=== PATIENT | female | born 1965 | race African-American/Black ===

== ENCOUNTER 2017-07-25 17:28 | Observation (INO) ==
--- NOTE | 2017-07-25 17:53 | Emergency Department Note ---
Disposition Clinical Impression: Chest pain Qualifiers: Chest pain type: unspecified Qualified Code(s): R07.9 - Chest pain, unspecified Disposition: Admitted As Inpatient Condition: Undetermined Referrals: Ramirez Arevalo DO [Primary Care Provider] - Forms: ED Satisfaction Letter Time of Disposition: 18:56 Chest Pain HPI - General Chief Complaint: ED Chest Pain Stated Complaint: Chest Pain Time Seen by Provider: 07/25/17 17:30 Source: patient, family, EMS Mode of arrival: EMS Limitations: no limitations Vital Signs Reviewed: Yes Nursing Notes Reviewed: Yes - History of Present Illness HPI Narrative: 51-year-old female arrives to [facility] emergency department complaining of left-sided chest pain that is radiating to her back and left side of her neck. The patient states this started roughly 5 hours ago. The patient states she has associated dyspnea with this. The patient denies any other complaints at this time. The patient has had multiple workups years ago for cardiac chest pain that felt similar to this but the patient states is much worse at this time. The patient denies any other complaints and appears uncomfortable room with left-sided chest wall pain. The patient is currently experiencing an episode of laryngitis. She denies any fevers, chills , nausea, vomiting, unilateral weakness, any other complaints at this time. Patient recently had a nuclear stress test which revealed a mild abnormality in inferior wall. Pt complaint: chest pain Onset (ago): hour(s) (5-6) Duration: constant Onset: during rest, during exertion Pain Location: left chest Severity: moderate Severity scale (1-10): 7 Quality: tightness Pain Radiation: LUE, back, neck Improves with: nothing Worsens with: nothing Associated symptoms: Reports: dyspnea. Denies: nausea, vomiting, diaphoresis Treatments prior to arrival chest pain: none - Related Data On Oral Contraceptives: No Home Medications Medication Instructions Recorded Confirmed Bupropion HCl [Wellbutrin Xl] 300 mg PO DAILY 09/02/15 07/23/17 Gabapentin [Neurontin] 400 mg PO TID 09/02/15 07/23/17 Pantoprazole Sodium 40 mg PO DAILY 09/02/15 07/23/17 Docusate [Colace] 100 mg PO DAILY 03/27/17 07/23/17 Meclizine [Antivert] 12.5 mg PO PRN PRN 03/27/17 07/23/17 Multivitamin [Multi-Day Vitamins] 1 each PO DAILY 03/27/17 07/23/17 Previous Rx's Medication Instructions Recorded Calcium Carbonate/Vitamin D3 2 each PO DAILY #60 tablet 01/31/16 [Calcium 600 + Vit D3 Tablet] Supplies [SUPPLIES] 1 each .ROUTE AD #2 each 01/29/17 Raloxifene [Evista] 1 tab PO DAILY #90 tablet 02/26/17 Ca/D3/Mag#11/Zinc/Cloth Winder Machine Operator/Reyes/Bor 2 tab PO DAILY #60 tablet 05/18/17 [Caltrate 600+D Plus Tablet] Allergies Allergy/AdvReac Type Severity Reaction Status Date / Time chlorpromazine Allergy Unknown See Verified 07/23/17 11:25 [From Thorazine] Comments ondansetron Allergy Difficulty Verified 07/23/17 11:25 [From Zofran (as Swallowing hydrochloride)] saffron Allergy Difficulty Verified 07/23/17 11:25 Swallowing Sulfa (Sulfonamide Allergy Hives Verified 07/23/17 11:25 Antibiotics) All systems ED: reviewed and negative except as stated. Constitutional: Denies: fever, chills, weakness Cardiovascular: Reports: chest pain. Denies: palpitations, dyspnea on exertion , edema Respiratory: Reports: dyspnea. Denies: cough, wheezes Gastrointestinal: Denies: abdominal pain, nausea, vomiting Musculoskeletal: Denies: back pain, arthralgia, myalgia Neurological: Denies: headache, weakness, numbness Chest Pain PMH - Past Medical History Medical history: Reports: cancer, seizures Psychiatric history: Reports: bipolar, depression Prior Cardiac Testing/Procedures: Stress Test, Cardiac Angiogram ("Years ago") [employer] history: Reports: non-contributory - Social History Smoking Status: Never smoker Alcohol use: Reports: none Drug use: Reports: none Physical Exam - General Limitations: no limitations General appearance: alert, in no apparent distress - Head Head exam: atraumatic, normocephalic, normal inspection - Eye Eye exam: Present: normal appearance, PERRL, EOMI - ENT ENT exam: normal exam, normal oropharynx, mucous membranes moist - Neck Neck exam: Present: normal inspection, full ROM, trachea midline - Chest Chest inspection: Present: normal inspection, symmetric chest wall rise - Respiratory Respiratory exam: Present: normal lung sounds bilaterally - Cardiovascular Cardiovascular exam: Present: regular rate, normal rhythm, normal heart sounds - Abdominal Exam Abdominal exam: Present: soft, Non-Tender. Absent: tenderness, distention, guarding, rebound, rigidity - Extremities Exam Extremities exam: Present: normal inspection, full ROM. Absent: tenderness, pedal edema Course Vital Signs Temperature 99.3 F 07/25/17 17:29 Pulse Rate 98 07/25/17 17:29 Respiratory Rate 16 07/25/17 17:29 Blood Pressure 152/127 07/25/17 17:29 O2 Sat by Pulse Oximetry 96 07/25/17 17:29 Temperature 99.3 F 07/25/17 17:29 Pulse Rate 98 07/25/17 17:29 Respiratory Rate 16 07/25/17 17:29 Blood Pressure 152/127 07/25/17 17:29 O2 Sat by Pulse Oximetry 96 07/25/17 17:29 Oxygen Delivery Oxygen Delivery Room Air Chest Pain - MDM Narrative Medical decision making narrative: Patient's workup here in the emergency department demonstrates no acute findings. Given the patient's symptoms of chest pain and relief with nitroglycerin, we will admit the patient to the hospitalist for ACS rule out. Patient made aware and agrees to plan. The patient received 2 nitroglycerin with complete relief of her pain at this time. Accepted by Khai. - Medical Records Medical records reviewed: Yes I reviewed the patient's medical records. - Lab Data Lab results reviewed: Yes I reviewed the patient's lab results. Result diagrams: 07/25/17 17:52 07/25/17 17:52 Lab Results 07/25/17 07/25/17 07/25/17 Range/Units 17:52 17:52 17:52 WBC 10.9 (4.3-11.1) K/mcL RBC 4.69 (3.82-4.97) M/mcL Hgb 12.7 (11.5-15.4) g/dL Hct 38.5 (35.3-44.9) % MCV 82.1 L (83.0-100.0) fL MCH 27.1 L (28.0-33.3) pg MCHC 33.0 (31.6-35.5) g/dL RDW 13.2 (11.5-14.5) % Plt Count 313 (140-400) K/mcL MPV 9.7 (9.4-12.4) fL Immature Gran % 0.3 (0-4) % Seg Neutrophils % 59.9 % Lymphocytes % 29.3 % Monocytes % 6.9 % Eosinophils % 3.0 % Basophils % 0.6 % Neutrophils # 6.5 (1.6-8.9) K/mcL Lymphocytes # 3.2 (0.6-4.6) K/mcL Monocytes # 0.8 (0.0-1.3) K/mcL Eosinophils # 0.3 (0.0-0.6) K/mcL Basophils # 0.1 (0.0-0.2) K/mcL Sodium 137 (136-145) mEq/L Potassium 3.9 (3.5-4.5) mEq/L Chloride 103 (98-109) mEq/L Carbon Dioxide 25 (19-29) mEq/L BUN 10 (7-20) mg/dL Creatinine 1.02 (0.57-1.11) mg/dL Est GFR ( Amer) > 60 (> 60) Est GFR (Non-Af Amer) 57 L (> 60) BUN/Creatinine Ratio 10 (6-26) Glucose 95 (70-99) mg/dL Calculated Osmolality 283 (280-300) Calcium 9.7 (8.6-10.8) mg/dL Troponin I 0.00 (0-0.03) ng/mL - Radiology Data Radiology results reviewed: Yes I reviewed the patient's radiology results. - EKG Data EKG attestation: Yes I reviewed and interpreted this EKG. EKG results narrative: Heart rate 94 bpm. CA interval 173 ms. QTC 392 ms. Normal axis. Normal sinus rhythm with no ST elevation or ST depression noted. Questionable CA interval depression that is seen partially on EKG from 10/26/2012. Does appear more pronounced in leads 2, 3. Attestation Statement - Attestation Attestation: I, Leobardo Elizalde DO, examined this patient [id number] and my medical decision-making was reviewed with Dr. Mario Kumar, Resident Physician. I agree with the documented findings, disposition and treatment plan as described except to the extent set forth below. Please see my progress notes for details. 50-year-old female presents emergency room with unstable angina. She has had exertional dyspnea as well as resting angina. During the evaluation here she also described exertional angina. She has had this several times in the past and has had multiple cardiac workups completed. Physical exam is otherwise unremarkable except for the patient does have persistent laryngitis at this time. She does have T-wave inversions diffusely throughout the inferior and lateral precordial leads. There is no reciprocal changes or signs of ST segment elevation myocardial infarction. Physical exam is not consistent with any other pathology. Concern is noted for ACS based on the unstable angina like presentation. Chest x-ray EKG and labs resulted reviewed. Patient will be admitted for definitive evaluation secondary to no recent cardiac catheterizations noted. She does have a stress test completed which shows apical akinesis. Patient has complete resolution of symptoms with nitroglycerin here. Patient will be admitted for definitive evaluation treatment. See detailed documentation of the medical intervention, medical decision-making, physical exam and disposition of the resident physician's note. She will most likely need catheterization here during his treatment course considering the persistence of her symptoms over the last several weeks to months.
[2017-07-25 18:02] LABS: Basophils # 0.1 K/mcL (0.0-0.2); Basophils % 0.6 %; Eosinophils # 0.3 K/mcL (0.0-0.6); Hematocrit 38.5 % (35.3-44.9); Hemoglobin 12.7 g/dL (11.5-15.4); Immature Granulocytes % 0.3 % (0-4); Lymphocytes # 3.2 K/mcL (0.6-4.6); Lymphocytes % 29.3 %; Mean Corpuscular Hemoglobin 27.1 pg (28.0-33.3); Mean Corpuscular Volume 82.1 fL (83.0-100.0); Mean Platelet Volume 9.7 fL (9.4-12.4); Monocytes # 0.8 K/mcL (0.0-1.3); Monocytes % 6.9 %; Neutrophils # 6.5 K/mcL (1.6-8.9); Platelet Count 313 K/mcL (140-400); Red Blood Count 4.69 M/mcL (3.82-4.97); Red Cell Distribution Width 13.2 % (11.5-14.5); Segmented Neutrophils % 59.9 %
[2017-07-25] MEDS: Nitroglycerin 0.4 MG TAB.SUBL SL PRN ×3 (18:13→21:20)
[2017-07-25 18:17] LABS: BUN/Creatinine Ratio 10 (6-26); Blood Urea Nitrogen 10 mg/dL (7-20); Calcium 9.7 mg/dL (8.6-10.8); Carbon Dioxide 25 mEq/L (19-29); Chloride 103 mEq/L (98-109); Glucose 95 mg/dL (70-99); Osmolality,Calculated 283 (280-300); Potassium 3.9 mEq/L (3.5-4.5); Sodium 137 mEq/L (136-145); eGFR For African Americans > 60 (> 60); eGFR For Non-African Americans 57 (> 60)
[2017-07-25] MEDS ORDERED: *HR* Morphine 2 MG/ML SYRINGE IVP PRN (20:56)
[2017-07-25] MEDS ORDERED: Ondansetron 4 MG/2 ML VIAL IVP PRN (20:56)
[2017-07-25] MEDS ORDERED: Naloxone 0.4 MG/ML INJ IVP PRN (20:56)
--- NOTE | 2017-07-25 21:06 | Internal Med History&Physical ---
Date of Encounter: 07/25/17 Time of Encounter: 21:01 Assessment and Plan (1) Chest pain Current visit: Yes Status: Acute Patient reports multiple cardiac catheterization in the past not requiring stent placement, she was scheduled for a stress test last month but did not return for the stress part after the resting images were taken which had reported inferior wall perfusion defect but no conclusive deductions can be made from this test since it was incomplete, despite this she has significant risk factors as well as family history of CAD that makes it reasonable to get cardiology involved at this point in time, will continue cycle troponin, telemetry monitoring, update her A1c and Lipid profile is none in recent 3 months, she will be NPO post midnight for cardiology evaluation Qualifiers: Chest pain type: intercostal pain Qualified Code(s): R07.82 - Intercostal pain (2) Laryngitis Current visit: Yes Status: Chronic Patient had laryngitis about 2 weeks ago and since then she has not been able to speak, family reports that she was told this is going to improve in a couple of weeks, for now she communicates via writing & signs (3) SUZANNE (obstructive sleep apnea) Current visit: Yes Status: Chronic She has not been compliant with the CPAP, was counseled up beside regarding compliance (4) GERD (gastroesophageal reflux disease) Current visit: Yes Status: Chronic Continue PPI Qualifiers: Esophagitis presence: without esophagitis Qualified Code(s): K21.9 - Gastro -esophageal reflux disease without esophagitis (5) Depression Current visit: Yes Status: Chronic Continue antidepressants Qualifiers: Depression Type: major depressive disorder Major depression recurrence: recurrent Active/Remission status: in partial remission Qualified Code(s): F33.41 - Major depressive disorder, recurrent, in partial remission Internal Medicine - H&P: HPI Chief complaint: Chest pain Admitted From: Emergency Dept Plans for Post Hospital Care: Home History of present illness: Ms. Atwood is a 51 year old female with a history of HTN/breast cancer with prior 3 left heart catheterizations with no stent placement was brought in to day for chest pain. She reports being in her usual state of health until around 10:30am when she started experiencing chest pain after she took her pets for a walk outside. The pain was located on the left side of the chest, it was squeezing in character, intermittent in timing, was 8-9/10 in severity. The pain radiated to her back and left neck area. It was made worse with exertion and improved with rest. There was associated lightheadedness, dyspnea, palpitations and nausea. She denies feeling of apprehension, vomiting, or diaphoresis. In the ER she had a EKG which was not remarkable for ST elevation but had TW inversions in the anterior leads unchanged from before, her troponin level was not elevated either. She however had a recent stress test that was remarkable for perfusion defect in the inferior wall. We will admit for cardiology to weigh in. Past Medical history: Cancer - Breast, Peripheral neuropathy Seizures (x25yrs,under good control), Osteopenia vitamin D deficiency, GERD SUZANNE not compliant with CPAP Past Surgical History cancer surgery, Oophorectomy (s/p bilateral), jaw surgery, port placement bilateral mastectomy PSYCH History: major depression Social History Tobacco use: non-smoker but had second hand exposure Alcohol use: none Drug use: none Marital status: She is Living situation: Lives at home with her who was at bedside today Family History: Shows striking cancer family history. Mother of ovarian cancer. Sister of peritoneal cancer. Grandmother had breast cancer at a young age. Father had COPD and had an CT in his 50's. Family history also positive for cardiac disease, hypertension and hyperlipidemia. Past Med Surg Social Fam HX - Past Medical History Medical history: cancer, seizures, other (SUZANNE but not adherent with CPAP) Psychiatric history: bipolar, depression - Social History Smoking Status: Never smoker Smokeless Tobacco Status: No Alcohol use: none Drug use: none - Family History Father Living Status: Cause of : COPD Hx Family Cardiac Disorders: No Hx Family Respiratory Disorders: Yes Hx Family Cancer: No Hx Family GI Disorders: No Hx Family Genitourinary Disorders: No Hx Family Endocrine Disorder: No Hx Family Musculoskeletal Disorders: No Hx Family Neuromuscular Disorders: No Hx Family Neurologic Disorders: No Hx Family HEENT Disorders: No Hx Family Autoimmune Disorders: No Hx Family Reproductive Disorders: No Hx Family Psychosocial Disorders: No Hx Family Medical Disorders: No Internal Medicine - H&P: Meds Bupropion HCl [Wellbutrin Xl] 300 mg PO DAILY 09/02/15 [History] Gabapentin [Neurontin] 400 mg PO TID 09/02/15 [History] Calcium Carbonate/Vitamin D3 [Calcium 600 + Vit D3 Tablet] 2 each PO DAILY #60 tablet 01/31/16 [Rx] Docusate [Colace] 100 mg PO DAILY 03/27/17 [History] Multivitamin [Multi-Day Vitamins] 1 each PO DAILY 03/27/17 [History] Esomeprazole Magnesium [Nexium] 40 mg PO DAILY 07/25/17 [History] Oxybutynin Chloride [Ditropan Xl] 10 mg PO DAILY 07/25/17 [History] Raloxifene [Evista] 60 mg PO DAILY 07/25/17 [History] 3 Allergy/AdvReac Type Severity Reaction Status Date / Time chlorpromazine Allergy Unknown See Verified 07/23/17 11:25 [From Thorazine] Comments ondansetron Allergy Difficulty Verified 07/23/17 11:25 [From Zofran (as Swallowing hydrochloride)] saffron Allergy Difficulty Verified 07/23/17 11:25 Swallowing Sulfa (Sulfonamide Allergy Hives Verified 07/23/17 11:25 Antibiotics) All Systems PM: A 10-system review of systems was performed and is negative for pertinent findings except as documented above in the HPI. - Constitutional Vitals: Temp Pulse Resp BP Pulse Ox 98.9 F 102 15 160/81 97 07/25/17 19:55 07/25/17 19:55 07/25/17 19:55 07/25/17 19:55 07/25/17 19:55 GENERAL: Adult female, obese looking, lying in bed, Alert, not in obvious pain or distress HEENT: NC/AT, EOMI, PERRLA, anicteric sclera, normal conjunctiva, short neck, clear nares, moist mucous membranes, RESP: Lungs are clear to auscultation bilaterally, with good AE, no crackles or wheeze CARDIO: Normal heart sounds with RRR, no murmurs, no JVD, no ankle edema GI: Soft, full, no tenderness, no organomegaly felt, normal bowel sounds heard MUSCULOSKELETAL: Grossly normal movements bilaterally, no deformities noted, NEUROLOGIC: CN 2-12 intact grossly. No gross motor/sensory deficit appreciated, PSYCHIATRY: AAO x 3. Mood is fair SKIN: no skin rash or ulcers noted Internal Med - H&P Results - Labs CBC & Chem 7: 07/25/17 17:52 07/25/17 17:52 - EKG Data -: EKG Interpreted by Myself EKG shows normal: sinus rhythm - Diagnostic Studies Chest x-ray Status: image reviewed by me
[2017-07-25] MEDS: Gabapentin 400 MG CAPSULE PO SCH (21:53)
[2017-07-25] MEDS: 0.9 % Sodium Chloride 1,000 ML IVC SCH (21:54)
[2017-07-25] MEDS: Acetaminophen 325 MG TABLET PO PRN (21:54)
[2017-07-26 01:26] LABS: Hemoglobin A1C 5.1 %
[2017-07-26 01:34] LABS: BUN/Creatinine Ratio 11 (6-26); Blood Urea Nitrogen 11 mg/dL (7-20); Calcium 9.2 mg/dL (8.6-10.8); Carbon Dioxide 24 mEq/L (19-29); Chloride 103 mEq/L (98-109); Glucose 96 mg/dL (70-99); Magnesium 1.7 mg/dL (1.6-2.6); Osmolality,Calculated 281 (280-300); Phosphorous 3.3 mg/dL (2.3-4.7); Potassium 3.9 mEq/L (3.5-4.5); Sodium 136 mEq/L (136-145); eGFR For African Americans > 60 (> 60); eGFR For Non-African Americans 57 (> 60)
[2017-07-26] MEDS: Acetaminophen 325 MG TABLET PO PRN ×2 (07:44→21:01)
[2017-07-26] MEDS ORDERED: Regadenoson 0.4 MG/5 ML SYRINGE IVP ONE (10:16)
[2017-07-26] MEDS ORDERED: *HR* Morphine 2 MG/ML SYRINGE IVP ONE (10:23)
--- NOTE | 2017-07-26 10:29 | Internal Med Progress Note ---
Date of Encounter: 07/26/17 Time of Encounter: 09:20 - Assessment and plan (1) Chest pain Current Visit: Yes Status: Acute Assessment and plan: Patient currently rates midsternal chest pain 4/10. We are treating with morphine and Tylenol at this time, no nitroglycerin due to pending stress test. I did speak with cardiology this morning, patient will have to repeat all of 2 day stress since it was over a month ago. Patient had one day of stress test done on 07/09 and did not return for day 2. Day 1 was read as being abnormal. Patient is agreeable to staying and is aware that she could be here for 2-3 days to finish testing. Qualifiers: Chest pain type: intercostal pain Qualified Code(s): R07.82 - Intercostal pain (2) Laryngitis Current Visit: Yes Status: Chronic Assessment and plan: Two-week history of laryngitis, she has been using a dry erase board to communicate. States that she has been seen by primary care and told that it is viral and that it will improve on its own. Patient denies sore throat or excessive postnasal drip. Treat symptoms. (3) SUZANNE (obstructive sleep apnea) Current Visit: Yes Status: Chronic Assessment and plan: Patient is nonadherent to CPAP recommendations. We will continue to encourage use in the hospital, as well as at home. (4) GERD (gastroesophageal reflux disease) Current Visit: Yes Status: Chronic Assessment and plan: Chronic. Continue home medications. Qualifiers: Esophagitis presence: without esophagitis Qualified Code(s): K21.9 - Gastro -esophageal reflux disease without esophagitis (5) Breast cancer Current Visit: Yes Status: Chronic Assessment and plan: Per patient history. Qualifiers: Breast location: unspecified site of breast Estrogen receptor status: unspecified Patient sex: female Laterality: left Qualified Code(s): C50.912 - Malignant neoplasm of unspecified site of left female breast (6) Depression Current Visit: Yes Status: Chronic Assessment and plan: Chronic. Continue home medications. Qualifiers: Depression Type: major depressive disorder Major depression recurrence: recurrent Active/Remission status: in partial remission Qualified Code(s): F33.41 - Major depressive disorder, recurrent, in partial remission (7) DVT prophylaxis Current Visit: Yes Status: Acute Assessment and plan: KESHA hose, and early ambulation. - Time Spent With Patient less than 15 minutes - Subjective Interval history: Patient was seen and assessed at ga 9:40 AM. The officer at bedside. Patient is alert, oriented, engaged. She reports onset of chest pressure with dyspnea on exertion for last 2-3 months. The pain is not reproducible with palpation or deep inspiration. It is reproducible with exertion. She currently reports the pain is 4/10 and reports dyspnea on exertion she gets up to go to the bathroom. Patient has laryngitis for last 2 weeks and is communicating on a white board. He reports near constant clear rhinorrhea, postnasal drip, sinus congestion for several years. She denies any nausea, vomiting, diaphoresis, shortness of breath at rest, headache, blurred vision, abdominal pain. - Constitutional Vitals: Temp Pulse Resp BP Pulse Ox 98.3 F 73 16 130/86 98 07/26/17 09:58 07/26/17 09:58 07/26/17 09:58 07/26/17 09:58 07/26/17 09:58 General appearance: Present: A&O X 3, pleasant, answers questions appropriately. Absent: obese - Head Head exam: Present: atraumatic, normal inspection, normocephalic - Eye Eye exam: Present: normal appearance, conjuntiva pink, sclera anicteric - Neck Neck exam general surgery: Present: supple, trachea midline. Absent: lymphadenopathy, tenderness, thyromegaly - Respiratory Respiratory exam: Present: CTAB. Absent: accessory muscle use, chest wall tenderness, rales, respiratory distress, rhonchi, wheezes - Cardiovascular Cardiovascular exam: Present: RRR, +S1, +S2. Absent: diastolic murmur, gallop, rubs, systolic murmur - GI/Abdominal GI/Abdominal exam: Present: normal bowel sounds, soft, no peritoneal signs. Absent: distended, hepatomegaly, tenderness - Extremities Exam Extremities exam: Present: normal capillary refill, pedal edema, warm, radial pulses palpable and symmetrical. Absent: calf tenderness, cyanotic, tenderness - Neurological Exam Neurological exam: Present: alert, oriented X3, no focal deficits. Absent: facial droop, speech deficit - Skin Skin exam: Present: dry, intact, normal color, warm. Absent: rash Internal Medicine: Result - Labs CBC & Chem 7: 07/25/17 17:52 07/26/17 00:35 Labs: BMP 07/26/17 00:35 Sodium 136 Potassium 3.9 Chloride 103 Carbon Dioxide 24 BUN 11 Creatinine 1.01 Glucose 96 Calcium 9.2 Cardiac Enzymes 07/26/17 07/26/17 Range/Units 00:35 07:02 Troponin I 0.00 0.00 (0-0.03) ng/mL Consult Discharge Plan - Plan Referrals: Ramirez Arevalo DO [Primary Care Provider] -
[2017-07-26] MEDS ORDERED: Ketorolac 30 MG/ML VIAL IVP ONE (12:32)
[2017-07-26] MEDS ORDERED: Metoclopramide 10 MG/2 ML VIAL IVP ONE (12:33)
[2017-07-26] MEDS: Multivit/Ca/Min/Fe/FA 1 TAB TABLET PO SCH (13:12)
[2017-07-26] MEDS: Gabapentin 400 MG CAPSULE PO SCH ×3 (13:12→20:58)
[2017-07-26] MEDS: BuPROPion XL (24 HR) 150 MG TABLET PO SCH (13:12)
--- NOTE | 2017-07-26 20:20 | Electrocardiograph Report ---
[address] [place] [address] Test Date: 2017-07-25 Pat Name: Mirella Atwood Department: 102 Room: 3B63 Gender: F Sports Nutritionist: Am : 1965 Requested By: Mario Kumar Order Number: [id number] Reading MD: cJarlos Mujica MD Measurements Intervals Reva Rate: 94 P: 61 SD: 173 QRS: -9 QRSD: 92 T: 0 QT: 340 QTc: 392 Interpretive Statements SINUS RHYTHM LEFT ATRIAL ENLARGEMENT ANTERIOR ISCHEMIA Electronically Signed On 07-26-2017 20:18:49 EDT by Jcarlos Mujica MD
[2017-07-26] MEDS: 0.9 % Sodium Chloride 1,000 ML IVC SCH (20:57)
[2017-07-26] MEDS: *HR* Heparin 5,000 UNIT/ML VIAL SQ SCH (20:58)
[2017-07-27 04:28] LABS: Basophils # 0.1 K/mcL (0.0-0.2); Basophils % 0.8 %; Eosinophils # 0.4 K/mcL (0.0-0.6); Eosinophils % 4.4 %; Immature Granulocytes % 0.1 % (0-4); Lymphocytes % 37.7 %; Mean Corpuscular HGB Conc 32.1 g/dL (31.6-35.5); Mean Corpuscular Hemoglobin 27.5 pg (28.0-33.3); Mean Corpuscular Volume 85.7 fL (83.0-100.0); Mean Platelet Volume 9.9 fL (9.4-12.4); Monocytes # 0.5 K/mcL (0.0-1.3); Monocytes % 6.5 %; Platelet Count 259 K/mcL (140-400); Red Blood Count 3.85 M/mcL (3.82-4.97); Red Cell Distribution Width 13.4 % (11.5-14.5); Segmented Neutrophils % 50.5 %
[2017-07-27 04:33] LABS: Hemoglobin 10.6 g/dL (11.5-15.4)
[2017-07-27 04:49] LABS: BUN/Creatinine Ratio 12 (6-26); Blood Urea Nitrogen 11 mg/dL (7-20); Calcium 8.5 mg/dL (8.6-10.8); Carbon Dioxide 24 mEq/L (19-29); Chloride 110 mEq/L (98-109); Glucose 90 mg/dL (70-99); Osmolality,Calculated 287 (280-300); Sodium 139 mEq/L (136-145); eGFR For African Americans > 60 (> 60); eGFR For Non-African Americans > 60 (> 60)
[2017-07-27] MEDS: Acetaminophen 325 MG TABLET PO PRN ×2 (05:10→09:29)
[2017-07-27] MEDS: *HR* Heparin 5,000 UNIT/ML VIAL SQ SCH ×2 (05:46→16:08)
[2017-07-27] MEDS: Gabapentin 400 MG CAPSULE PO SCH ×2 (09:24→16:13)
[2017-07-27] MEDS: Multivit/Ca/Min/Fe/FA 1 TAB TABLET PO SCH (09:24)
[2017-07-27] MEDS: BuPROPion XL (24 HR) 150 MG TABLET PO SCH (09:25)
[2017-07-27 14:54] VITALS: BP 130/89
--- NOTE | 2017-07-27 16:11 | Discharge Summary ---
Date of Encounter: 07/27/17 Time of Encounter: 13:30 - Discharge Diagnosis (1) Chest pain Priority: Primary Status: Acute Comments: Patient was admitted for chest pain. She was in her usual state of health until the day of admission when she getting experiencing chest pain if she took her pets for a walk. Pain was located in the left, squeezing in nature, intermittent, rated 8/10. Pain radiated to her back and left neck area. It improved with rest and worse with exertion. She reported associated lightheadedness, dyspnea, palpitations, and nausea. She denied any vomiting or diuresis. EKG was normal sinus with no ST elevation, there were T-wave inversions in anterior leads which is unchanged from prior. Her troponins were negative. Recent stress test one month ago that was remarkable for perfusion defect in the inferior wall, she did not return for the second day of testing, therefore everything had to be repeated this visit. Her chest x-ray was negative for any acute cardiopulmonary processes. Today's stress perfusion imaging was negative for ischemia or infarct. There is apical thinning artifact noted as well as inferior rest defect that improves with stress, consistent with artifact as well. Gated EF is greater than 70%. No evidence of TID. The pain is not reproducible with movement, deep inspiration, or palpation today. Today she is not having any chest pain upon assessment. Yesterday the pain was midsternal and rated 4/10. Patient will follow-up with primary care provider for continued follow-up. I suspect that this chest pain was most likely musculoskeletal in nature and occurred after walking the dog. I will place patient on a baby aspirin daily for discharge. Qualifiers: Chest pain type: intercostal pain Qualified Code(s): R07.82 - Intercostal pain (2) Laryngitis Priority: Secondary Status: Chronic Comments: Patient reports laryngitis for 2 weeks. She is having to write all of her responses on a dry erase board. Patient denies sore throat. Oropharynx without any exudate or redness, tonsils are +1. She has no palpable or painful anterior or posterior cervical nodes, no submandibular nodes. She will be given Claritin and Flonase due to her complaints of constant drainage and postnasal drip. (3) SUZANNE (obstructive sleep apnea) Priority: Secondary Status: Chronic Comments: Patient is nonadherent with CPAP recommendations. She does not wear it at home , she did not use it in the hospital. (4) GERD (gastroesophageal reflux disease) Priority: Secondary Status: Chronic Comments: Chronic. Continue home medications. Qualifiers: Esophagitis presence: without esophagitis Qualified Code(s): K21.9 - Gastro -esophageal reflux disease without esophagitis (5) Breast cancer Priority: Secondary Status: Chronic Comments: Per patient history. Qualifiers: Breast location: unspecified site of breast Estrogen receptor status: unspecified Patient sex: female Laterality: left Qualified Code(s): C50.912 - Malignant neoplasm of unspecified site of left female breast (6) Depression Priority: Secondary Status: Chronic Comments: Chronic. Continue home medications. Qualifiers: Depression Type: major depressive disorder Major depression recurrence: recurrent Active/Remission status: in partial remission Qualified Code(s): F33.41 - Major depressive disorder, recurrent, in partial remission (7) DVT prophylaxis Priority: Secondary Status: Acute Comments: [place]. Patient has been ambulatory in her room. - Discharge Medications Prescriptions: Aspirin Enteric Coated [Aspirin EC] 81 mg PO DAILY #30 tablet. Fluticasone Propionate Nasal [Flonase] 50 mcg NS DAILY #1 bottle Loratadine [Claritin] 10 mg PO DAILY #30 tablet Home Medications: Bupropion HCl [Wellbutrin Xl] 300 mg PO DAILY 09/02/15 [History] Gabapentin [Neurontin] 400 mg PO TID 09/02/15 [History] Calcium Carbonate/Vitamin D3 [Calcium 600-Vit D3 800 Tablet] 2 each PO DAILY # 60 tablet 01/31/16 [Rx] Docusate [Colace] 100 mg PO DAILY 03/27/17 [History] Multivitamin [Multi-Day Vitamins] 1 each PO DAILY 03/27/17 [History] Esomeprazole Magnesium [Nexium] 40 mg PO DAILY 07/25/17 [History] Oxybutynin Chloride [Ditropan Xl] 10 mg PO DAILY 07/25/17 [History] Raloxifene [Evista] 60 mg PO DAILY 07/25/17 [History] Aspirin Enteric Coated [Aspirin EC] 81 mg PO DAILY #30 tablet. 07/27/17 [Rx] Fluticasone Propionate Nasal [Flonase] 50 mcg NS DAILY #1 bottle 07/27/17 [Rx] Loratadine [Claritin] 10 mg PO DAILY #30 tablet 07/27/17 [Rx] Allergies/Adverse Reactions: 3 Allergy/AdvReac Type Severity Reaction Status Date / Time chlorpromazine Allergy Unknown See Verified 07/23/17 11:25 [From Thorazine] Comments ondansetron Allergy Difficulty Verified 07/23/17 11:25 [From Zofran (as Swallowing hydrochloride)] saffron Allergy Difficulty Verified 07/23/17 11:25 Swallowing Sulfa (Sulfonamide Allergy Hives Verified 07/23/17 11:25 Antibiotics) Procedures/tests Complete & Pending: Procedures Performed prior 72 hours Category Date Time Status NM dacia perf SPECT multi [NM] Routine Exams 07/26/17 09:30 Taken SP pharm nuclear stress Routine Y 07/26/17 09:30 Completed Date of admission: 07/25/17 19:03 Primary care physician: Ramirez Arevalo, Discharging clinician: Radha Kiser Anticipated date of discharge: 07/27/17 - Patient Status Disposition: Home, Self-Care Condition: Good Functional capacity at discharge: independent ambulation Overall status at discharge: patient is back to baseline - Discharge Instructions Follow Up With: Ramirez Arevalo DO [Primary Care Provider] - Additional Instructions: Follow up with your PCP in the next 7-10 days for a follow up visit. Return to the ER as needed for any other problems or concerns, or if your symptoms return or worsen. Resume your normal home medications and activities as tolerated. Take your Claritin and Flonase as directed. - Diet and Activity Activity: increase activity as tolerated Diet: advance to your usual diet Hospital course: Ms. Atwood is a 51 year old female with past medical history of hypertension, breast cancer, 3 [facility] with the stent placement, SUZANNE, reflux, cognitive impairments, depression who presents to the emergency department with complaint of chest pain. Patient presented to the emergency department with midsternal and left chest pain, squeezing, intermittent, rated 8-10 with radiation to the back and left neck, onset while walking her dog. Improved with rest, worse with exertion. There is associated lightheadedness, dyspnea, palpitations, and nausea. She denied vomiting or diaphoresis. Patient had a stress test on 07/09 that was to be a 2 day stress test. First day of testing, rest portion appeared to be positive, patient did not return for day 2. Today's stress test was negative for ischemia or infarct. There is apical thinning artifact, as well as the inferior rest defect improves with stress, this is also consistent with artifact. Patient had no chest pain and there no arrhythmias. Gated EF was greater than 70% and there was no evidence of T I D. I believe this is most likely musculoskeletal chest pain that began after walking the dog. It is not reproducible. I started patient on aspirin. Patient also has two-week history of laryngitis is not improving. She has been seen by primary care for same to do it was viral. She reports long history of postnasal drip and rhinorrhea, nasal congestion. I have also given her Claritin and Flonase for home. She is currently able to communicate with a [employer] board. Labs are within normal limits, vital signs are stable and within normal limits. Patient is stable and appropriate for discharge. - Time Spent with Patient Total time spent providing and/or coordinating discharge services: Less than 30 minutes - Constitutional Vitals: Temp Pulse Resp BP Pulse Ox 98.8 F 87 16 130/89 95 07/27/17 14:51 07/27/17 14:51 07/27/17 14:51 07/27/17 14:51 07/27/17 14:51 General appearance: Present: A&O X 3, pleasant, answers questions appropriately. Absent: obese - Head Head exam: Present: atraumatic, normal inspection, normocephalic - Eye Eye exam: Present: normal appearance, conjuntiva pink, sclera anicteric - Neck Neck exam general surgery: Present: tenderness, supple, trachea midline. Absent : lymphadenopathy - Respiratory Respiratory exam: Present: CTAB. Absent: accessory muscle use, rales, rhonchi, wheezes - Cardiovascular Cardiovascular exam: Present: RRR, +S1, +S2. Absent: diastolic murmur, gallop, rubs, systolic murmur - GI/Abdominal GI/Abdominal exam: Present: distended, normal bowel sounds, soft. Absent: tenderness - Extremities Exam Extremities exam: Present: normal capillary refill, normal inspection, warm, radial pulses palpable and symmetrical. Absent: calf tenderness, cyanotic, pedal edema, tenderness - Neurological Exam Neurological exam: Present: alert, oriented X3, no focal deficits. Absent: facial droop, speech deficit - Skin Skin exam: Present: dry, intact, normal color, warm. Absent: rash
== END 2017-07-27 18:01 | disposition home or self-care (01) ==
LOC: EMEROO 17:28 → 3BNU 17:28
PROVIDERS: ADMIT Internal Medicine; ATTEND Registered Nurse

== ENCOUNTER 2020-05-18 12:26 | Observation (INO) ==
[2020-05-18 13:26] LABS: Basophils # 0.1 K/mcL (0.0-0.2); Basophils % 0.8 %; Eosinophils # 0.2 K/mcL (0.0-0.6); Hemoglobin 12.9 g/dL (11.5-15.4); Immature Granulocytes % 0.3 % (0-4); Lymphocytes # 1.8 K/mcL (0.6-4.6); Mean Corpuscular HGB Conc 32.3 g/dL (31.6-35.5); Mean Corpuscular Hemoglobin 28.4 pg (28.0-33.3); Mean Corpuscular Volume 88.1 fL (83.0-100.0); Mean Platelet Volume 9.1 fL (9.4-12.4); Monocytes # 0.4 K/mcL (0.0-1.3); Monocytes % 5.1 %; Neutrophils # 5.1 K/mcL (1.6-8.9); Platelet Count 312 K/mcL (140-400); Red Blood Count 4.54 M/mcL (3.82-4.97); Red Cell Distribution Width 12.2 % (11.5-14.5); Segmented Neutrophils % 66.8 %; White Blood Count 7.6 K/mcL (4.3-11.1)
[2020-05-18] MEDS ORDERED: Isovue-370 500 ML BOTTLE IVP ONE (13:26)
[2020-05-18 13:45] LABS: Alanine Aminotransferase 8 Units/L (7-52); Albumin 3.9 g/dL (3.5-5.7); Albumin/Globulin Ratio 1.4 (1.1-2.2); Alkaline Phosphatase 61 Units/L (34-104); Aspartate Amino Transferase 14 Units/L (13-39); BUN/Creatinine Ratio 18 (6-26); Bilirubin,Direct 0.1 mg/dL (0.0-0.2); Bilirubin,Indirect 0.3 mg/dL (0.0-1.0); Bilirubin,Total 0.4 mg/dL (0.3-1.0); Blood Urea Nitrogen 15 mg/dL (6-20); Calcium 9.4 mg/dL (8.6-10.3); Carbon Dioxide 28 mEq/L (23-29); Chloride 98 mEq/L (98-107); Globulin 2.7 g/dL (2.4-3.5); Glucose 95 mg/dL (70-105); Osmolality,Calculated 273 (280-300); Potassium 3.7 mEq/L (3.5-5.1); Sodium 131 mEq/L (136-145); Total Protein 6.6 g/dL (6.4-8.9); Troponin I < 0.03 ng/mL (< 0.04); eGFR For African Americans > 60 (> 60); eGFR For Non-African Americans > 60 (> 60)
[2020-05-18] MEDS ORDERED: Aspirin 81 MG TAB.CHEW PO STA (15:09)
[2020-05-18 17:01] LABS: Adenovirus Not Detected (Not Detect); Bordetella Pertussis Not Detected (Not Detect); Chlamydophila pneumoniae Not Detected (Not Detect); Coronavirus 229E Not Detected (Not Detect); Coronavirus HKU1 Not Detected (Not Detect); Coronavirus NL63 Not Detected (Not Detect); Coronavirus OC43 Not Detected (Not Detect); Human Metapneumovirus Not Detected (Not Detect); Human Rhinovirus/Enterovirus Not Detected (Not Detect); Influenza A Subtype 2009 H1 Not Detected (Not Detect); Influenza B Not Detected (Not Detect); Mycoplasma pneumoniae Not Detected (Not Detect); Parainfluenza Virus 1 Not Detected (Not Detect); Parainfluenza Virus 2 Not Detected (Not Detect); Parainfluenza Virus 3 Not Detected (Not Detect); Parainfluenza Virus 4 Not Detected (Not Detect); Respiratory Syncytial Virus Not Detected (Not Detect)
[2020-05-18] MEDS ORDERED: Nitroglycerin 0.4 MG TAB.SUBL SL PRN (17:57)
[2020-05-19 01:10] LABS: Prothrombin Time 11.9 Seconds (9.4-12.1)
[2020-05-19 01:11] LABS: Basophils # 0.1 K/mcL (0.0-0.2); Basophils % 0.6 %; Eosinophils # 0.3 K/mcL (0.0-0.6); Eosinophils % 3.4 %; Hematocrit 35.7 % (35.3-44.9); Immature Granulocytes % 0.1 % (0-4); Lymphocytes # 2.9 K/mcL (0.6-4.6); Lymphocytes % 31.8 %; Mean Corpuscular HGB Conc 33.6 g/dL (31.6-35.5); Mean Corpuscular Hemoglobin 29.6 pg (28.0-33.3); Mean Corpuscular Volume 87.9 fL (83.0-100.0); Mean Platelet Volume 9.1 fL (9.4-12.4); Monocytes # 0.6 K/mcL (0.0-1.3); Monocytes % 6.3 %; Neutrophils # 5.2 K/mcL (1.6-8.9); Platelet Count 258 K/mcL (140-400); Red Blood Count 4.06 M/mcL (3.82-4.97); Red Cell Distribution Width 12.1 % (11.5-14.5); Segmented Neutrophils % 57.8 %
[2020-05-19 01:26] LABS: Alanine Aminotransferase 7 Units/L (7-52); Albumin 3.4 g/dL (3.5-5.7); Albumin/Globulin Ratio 1.4 (1.1-2.2); Alkaline Phosphatase 51 Units/L (34-104); Aspartate Amino Transferase 14 Units/L (13-39); BUN/Creatinine Ratio 14 (6-26); Bilirubin,Total 0.4 mg/dL (0.3-1.0); Blood Urea Nitrogen 11 mg/dL (6-20); Calcium 9.2 mg/dL (8.6-10.3); Carbon Dioxide 24 mEq/L (23-29); Chloride 100 mEq/L (98-107); Globulin 2.4 g/dL (2.4-3.5); Glucose 82 mg/dL (70-105); Magnesium 1.7 mg/dL (1.6-2.6); Osmolality,Calculated 272 (280-300); Potassium 3.6 mEq/L (3.5-5.1); Sodium 132 mEq/L (136-145); Total Protein 5.8 g/dL (6.4-8.9); eGFR For African Americans > 60 (> 60); eGFR For Non-African Americans > 60 (> 60)
[2020-05-19] MEDS ORDERED: Regadenoson 0.4 MG/5 ML SYRINGE IVP ONE (06:11)
[2020-05-19] MEDS ORDERED: Aspirin Enteric Coated 325 MG Tablet PO SCH (09:00)
[2020-05-19] MEDS ORDERED: Cholecalciferol (D-3) 1,000 UNIT (25MCG) TABLET PO SCH (09:00)
[2020-05-19] MEDS ORDERED: Loratadine 10 MG TABLET PO SCH (09:00)
[2020-05-19] MEDS ORDERED: BuPROPion XL (24 HR) 150 MG TABLET PO SCH (09:00)
[2020-05-19] MEDS ORDERED: Tolterodine LA (24 HR) 2 MG CAP.ER.24H PO SCH (09:00)
[2020-05-19] MEDS ORDERED: Multivit/Ca/Min/Fe/FA 1 TAB TABLET PO SCH (09:00)
[2020-05-19] MEDS ORDERED: Lactobacillus 1 EACH CAP.SPRINK PO SCH (09:00)
[2020-05-19 10:56] VITALS: BP 113/78
== END 2020-05-19 12:50 | disposition home or self-care (01) ==
LOC: 3BNU 12:26 → EMEROOARM 12:26 → SUATTDRO 17:04 → 3BNU 17:43
PROVIDERS: ADMIT Family Medicine; ATTEND Internal Medicine